=== PATIENT | female | born 1950 | race Caucasian/White ===

== ENCOUNTER 2019-07-18 14:29 | Emergency (ER) | payer BC, MEDICARE ==
[2019-07-18] MEDS ORDERED: NS 0.9% 1000 ML** 1,000 ML IV ONE (15:23)
[2019-07-18] MEDS ORDERED: Aspirin 81 mg CHEW TAB* 81 MG TAB.CHEW PO ONE (15:23)
--- NOTE | 2019-07-18 15:33 | ED ---
HPI Chest Pain - HPI Summary HPI Summary: . This pt is a 69 Y/O F presenting to [facility] with a CC of chest pain that radiated to her L arm and shoulder after throwing a ball around with her dogs. She states that she went inside and still had pain so she took her BP and found that it was high for me. She also had an elevated HR at 130 BPM. She denies any dizziness, diaphoresis, N/V, abdominal pain, SOB, lightheadedness, and the feeling that she was going to pass out. She states that she was feeling off about a week before this incident occurred and had a fever with chills. She has no prescription medications and has no PMHx that is pertinent. She denies any smoking and states that she drinks a light beer a day. She denies any stress test. - History of Current Complaint Chief Complaint: EDChestPainROMI Time Seen by Provider: 07/18/19 15:07 Hx Obtained From: Patient Onset/Duration: Started Hours Ago - 1, Resolved Time of Onset: 14:37 Timing: Constant Initial Severity: Moderate Current Severity: None Pain Intensity: 0 Pain Scale Used: 0-10 Numeric Chest Pain Location: Left Anterior Chest Pain Radiates: Yes Chest Pain Radiates To:: Shoulder - L shoulder, Arm - L arm Character: Fast Aggravating Factor(s): Nothing Alleviating Factor(s): Nothing Associated Signs and Symptoms: Positive: Negative - syncope, Chest Pain, Fever, Chills. Negative: Dizziness, Shortness of Breath, Lightheadedness, Diaphoresis , Nausea, Vomiting - Allergy/Home Medications Allergies/Adverse Reactions: Allergies Allergy/AdvReac Type Severity Reaction Status Date / Time Yellow jackets Allergy Intermediate Swelling Uncoded 05/08/13 09:54 PMH/Surg Hx/FS Hx/Imm Hx Previously Healthy: Yes Endocrine/Hematology History: Denies: Hx Diabetes, Hx Thyroid Disease Cardiovascular History: Denies: Hx Hypertension Respiratory History: Denies: Hx Asthma, Hx Chronic Obstructive Pulmonary Disease (COPD) GI History: Denies: Hx Ulcer - Surgical History Surgery Procedure, Year, and Place: Donated a kidney in 1983 Infectious Disease History: No Infectious Disease History: Denies: Hx Hepatitis, Hx Human Immunodeficiency Virus (HIV), Traveled Outside the [place] in Last 30 Days - Social History Occupation: Retired Lives: With Family Alcohol Use: Weekly Hx Substance Use: No Substance Use Type: Reports: None Hx Tobacco Use: No Smoking Status (MU): Never Smoked Tobacco Review of Systems Positive: Fever, Chills. Negative: Skin Diaphoresis Positive: Chest Pain Negative: Shortness Of Breath Negative: Abdominal Pain, Vomiting, Nausea Neurological: Negative - dizziness, lightheadedness Negative: Headache All Other Systems Reviewed And Are Negative: Yes Physical Exam - Summary Physical Exam Summary: VITAL SIGNS: Reviewed. GENERAL: Patient is a well-developed and nourished female who is lying comfortable in the stretcher. Patient is not in any acute respiratory distress. HEAD AND FACE: No signs of trauma. No ecchymosis, hematomas or skull depressions. No sinus tenderness. EYES: PERRLA, EOMI x 2, No injected conjunctiva, no nystagmus. EARS: Hearing grossly intact. Ear canals and tympanic membranes are within normal limits. MOUTH: Oropharynx within normal limits. NECK: Supple, trachea is midline, no adenopathy, no JVD, no carotid bruit, no c- spine tenderness, neck with full ROM CHEST: Symmetric, no tenderness at palpation LUNGS: Clear to auscultation bilaterally. No wheezing or crackles. CVS: Tachycardic rate with a normal rhythm, S1 and S2 present, no murmurs or gallops appreciated. ABDOMEN: Soft, non-tender. No signs of distention. No rebound no guarding, and no masses palpated. Bowel sounds are normal. EXTREMITIES: FROM in all major joints, no edema, no cyanosis or clubbing. NEURO: Alert and oriented x 3. No acute neurological deficits. Speech is normal and follows commands. SKIN: Dry and warm Triage Information Reviewed: Yes Vital Signs On Initial Exam: Initial Vitals Pulse BP Pulse Ox 100 176/98 98 07/18/19 14:33 07/18/19 14:33 07/18/19 14:33 Vital Signs Reviewed: Yes Procedures - Sedation Patient Received Moderate/Deep Sedation with Procedure: No Diagnostics - Vital Signs Vital Signs Temp Pulse Resp BP Pulse Ox 07/18/19 14:36 98.7 F 98 20 176/98 98 07/18/19 14:34 99 98 07/18/19 14:33 100 176/98 98 - Laboratory Result Diagrams: 07/18/19 15:30 07/18/19 15:30 Lab Statement: Any lab studies that have been ordered have been reviewed, and results considered in the medical decision making process. - Radiology CXR Radiology Interpretation Completed By: Radiologist Summary of Radiographic Findings: ELEVATED LEFT HEMIDIAPHRAGM WITH AIR DISTENDED STOMACH. FOLLOW-UP EXAM IS. SUGGESTED. ED physician has reviewed this report. - EKG 1543 Cardiac Rate: NL ST Segment: Normal Ectopy: None Summary of EKG Findings: NSR at 97 BPM, P waves, QRS complex, and T waves are within normal limits, T waves and intervals are normal, no ischemic changes. This is a normal EKG. Interpreted by Dr. Bryant at 1547 07/18/19 Chest Pain Course/Dx - Course Assessment/Plan: This patient is a 69-year-old female who presents to the emergency department with a chief complaint of having left-sided chest pain. Patient reports that he was a sharp pain, lasting for about 15 minutes and resolved. Patient has no history of this type of pain. Patient reports no history of hypertension, diabetes or dyslipidemia. Blood test results without any significant abnormality except for creatinine 1.17, glucose is 102, and the first troponin 0.00. EKG showed sinus rhythm at [address] elevations he has a normal axis. Second troponin 4 hours apart as who presents here. Heart to score is equal to 1. Therefore I have no suspicion for acute coronary syndrome. Patient is not tachycardic or hypoxic therefore have no suspicion for PE. d-dimer is less than 200. Patient reports that all symptoms have resolved. Because the patient has no significant comorbidities and no family history of cardiovascular disease at his age the patient will be discharged home with follow up of PMD. I discussed all the findings and test results with the patient. Patient was instructed to return to the emergency room immediately if any of the symptoms return or worsen. Patient understands and agrees. Plan of care was discussed with the patient and patient understands and agrees. All questions were answered at patient satisfaction. There were no further complaints or concerns. PE before discharge: CVS: S1 and S2 present. No murmurs appreciated. Abdominal exam before discharge: Soft, non- tender. No signs of distention. No rebound no guarding, and no masses palpated. Bowel sounds are normal. Patient is alert and oriented x 3. Patient is hemodynamically stable. - Diagnoses Provider Diagnoses: Atypical chest pain Discharge ED - Sign-Out/Discharge Documenting (check all that apply): Patient Departure - DISCHARGE - Discharge Plan Condition: Stable Disposition: HOME Patient Education Materials: Chest Pain (ED) Referrals: Janet Gale MD [Primary Care Provider] - 2 Days Additional Instructions: PLEASE RETURN TO THE EMERGENCY DEPARTMENT FOR ANY NEW OR WORSENING SYMPTOMS. FOLLOW UP WITH YOUR PRIMARY CARE PROVIDER IN 1-3 DAYS. - Attestation Statements Document Initiated by Scribe: Yes Documenting Scribe: Teddy Giraldo Provider For Whom Scribe is Documenting (Include Credential): Rj Bryant MD Scribe Attestation: Teddy Kilgore, scribed for Rj Bryant MD on 07/18/19 at 1845. Status of Scribe Document: Ready
[2019-07-18 15:39] LABS: ABS Basophils 0.1 10^3/ul (0-0.2); ABS Eosinophils 0.1 10^3/ul (0-0.6); ABS Lymphocytes 0.8 10^3/ul (1.0-4.8); ABS Monocytes 0.4 10^3/ul (0-0.8); ABS Neutrophils 3.7 10^3/ul (1.5-7.7); Eosinophil % 2.2 %; Hematocrit 40 % (35-47); Hemoglobin 13.6 g/dL (12.0-16.0); Lymphocyte % 16.1 %; Mean Corpuscular HGB Conc 34 g/dL (31-36); Mean Corpuscular Hemoglobin 31 pg (27-31); Mean Corpuscular Volume 90 fL (80-97); Mean Platelet Volume 7.8 fL (7.4-10.4); Nucleated Red Blood Cells % 0.1; Platelet Count 238 10^3/uL (150-450); Red Blood Count 4.45 10^6 /uL (3.70-4.87); Red Cell Distribution Width 13 % (10-15)
[2019-07-18 15:57] LABS: Albumin 4.3 g/dL (3.2-5.2); Albumin/Globulin Ratio 1.5 (1-3); BUN/Creatinine Ratio 17.1 (8-20); Calcium 9.7 mg/dL (8.6-10.3); EGFR African American 55.3 (>60); EGFR Non-African American 45.7 (>60); Globulin 2.9 g/dL (2-4); Magnesium 1.9 mg/dL (1.9-2.7); Potassium 4.6 mmol/L (3.5-5.0); Total Bilirubin 0.4 mg/dL (0.2-1.0); Total Protein 7.2 g/dL (6.4-8.9)
[2019-07-18 16:01] LABS: CKMB ng/mL 1.1 ng/mL (0.6-6.3)
[2019-07-18 16:17] LABS: TSH (Thyroid Stimulating Horm) 1.58 mcIU/mL (0.34-5.60)
[2019-07-18 18:08] LABS: Urine Bacteria 1+ (Absent); Urine Red Blood Cell Trace(0-2/hpf) (Absent); Urine Squamous Epithelial Cell Present (Absent); Urine White Blood Cell Trace(0-5/hpf) (Absent)
[2019-07-18 18:12] LABS: Urine Appearance Clear; Urine Bilirubin Negative (Negative); Urine Blood Negative (Negative); Urine Color Yellow; Urine Ketones 1+ (Negative); Urine Nitrite Negative (Negative); Urine Protein 1+(30 mg/dL) (Negative); Urine Urobilinogen Negative (Negative)
[2019-07-18 18:13] LABS: Urine Glucose Negative (Negative)
[2019-07-18 18:54] VITALS: BP 166/95
== END 2019-07-18 18:51 | disposition home or self-care (01) ==
LOC: ED 14:29
DX: R07.89 Other chest pain (principal); Z91.030 Bee allergy status
CPT/HCPCS: 36415; 71045; 80053; 81003; 81015; 82550; 82553; 83605; 83735; 83880; 84443; 84484; 85025; 85379; 87086; 93005; 99283